=== PATIENT | male | born 1980 | race Caucasian/White ===

== ENCOUNTER 2017-05-04 17:59 | Emergency (ER) | payer SELFPAY ==
[~2017-05-04] VITALS: Ht 170.2 cm; Wt 111.8 kg
[2017-05-04 18:09] VITALS: BP 144/80
== END 2017-05-04 20:15 | disposition home or self-care (01) ==
LOC: ED 17:59
DX: M17.12 Unilateral primary osteoarthritis, left knee (principal); M70.52 Other bursitis of knee, left knee; J30.2 Other seasonal allergic rhinitis; I10 Essential (primary) hypertension; F17.210 Nicotine dependence, cigarettes, uncomplicated; Y93.89 Activity, other specified
CPT/HCPCS: 36415

== ENCOUNTER 2018-04-03 20:46 | Emergency (ER) | payer OTHER ==
[~2018-04-03] VITALS: Ht 177.8 cm; Wt 90.7 kg
[2018-04-03 20:52] VITALS: BP 116/93; Ht 177.8 cm; Wt 90.7 kg
== END 2018-04-03 23:08 | disposition home or self-care (01) ==
LOC: ED 20:46
DX: S63.614A Unspecified sprain of right ring finger, initial encounter (principal); I10 Essential (primary) hypertension; M19.90 Unspecified osteoarthritis, unspecified site; X58.XXXA Exposure to other specified factors, initial encounter; Y93.89 Activity, other specified; Y92.89 Other specified places as the place of occurrence of the external cause; Y99.8 Other external cause status